=== PATIENT | female | born 1955 | race Caucasian/White ===

== ENCOUNTER 2019-08-27 12:11 | Outpatient (CLI) | payer BC, SELFPAY ==
[2019-08-27 12:57] LABS: Alanine Aminotransferase 29 U/L (4-35); Albumin Level 4.5 g/dL (3.5-5.1); Alkaline Phosphatase 43 U/L (38-126); Aspartate Amino Transferase 33 U/L (14-36); Bilirubin,Total 0.4 mg/dL (0.2-1.3); Blood Urea Nitrogen 9 mg/dL (7-17); Calcium 9.3 mg/dL (8.4-10.2); Carbon Dioxide 26 mmol/L (22-30); Chloride 93 mmol/L (98-107); Estimated Glomerular Filt Rate > 60; Glucose 84 mg/dL (65-105); Sodium 134 mmol/L (137-145)
[2019-08-27 13:04] LABS: Hemoglobin A1C 6.4 % (<5.7)
== END 2019-08-27 12:12 | disposition home or self-care (01) ==
LOC: ANHLAB 12:15
PROVIDERS: PCP Family Medicine; Visit Provider Physician Assistant
DX: E11.9 Type 2 diabetes mellitus without complications (principal)
CPT/HCPCS: 36415; 80053; 83036

== ENCOUNTER 2019-12-24 07:46 | Outpatient (RCR) | payer BC, SELFPAY ==
[2019-11-27 09:58] VITALS: BMI 38.8
== END 2020-02-10 07:31 | disposition home or self-care (01) ==
LOC: ANHWOC 07:46
PROVIDERS: PCP Family Medicine; Visit Provider Family Medicine
DX: I87.2 Venous insufficiency (chronic) (peripheral) (principal)
CPT/HCPCS: 99201; 99212; G0463

== ENCOUNTER 2020-02-17 15:21 | Outpatient (CLI) | payer BC, SELFPAY ==
[2020-02-17 15:44] LABS: Hemoglobin A1C 6.9 % (<5.7)
[2020-02-17 15:47] LABS: Alanine Aminotransferase 43 U/L (4-35); Albumin Level 4.4 g/dL (3.5-5.1); Alkaline Phosphatase 49 U/L (38-126); Anion Gap 11 mmol/L (8-16); Aspartate Amino Transferase 40 U/L (14-36); Bilirubin,Total 0.2 mg/dL (0.2-1.3); Blood Urea Nitrogen 8 mg/dL (7-17); Calcium 9.2 mg/dL (8.4-10.2); Carbon Dioxide 26 mmol/L (22-30); Chloride 95 mmol/L (98-107); Estimated Glomerular Filt Rate > 60; Glucose 86 mg/dL (65-105); Potassium 4.2 mmol/L (3.4-5.0); Sodium 132 mmol/L (137-145)
== END 2020-02-17 15:22 | disposition home or self-care (01) ==
PROVIDERS: PCP Family Medicine; Visit Provider Physician Assistant
DX: E11.9 Type 2 diabetes mellitus without complications (principal); I10 Essential (primary) hypertension
CPT/HCPCS: 36415; 80053; 83036

== ENCOUNTER 2020-03-06 15:36 | Emergency (ER) | payer BC, SELFPAY ==
--- NOTE | ~2020-03-06 | XR_ITS ---
XR knee LT min 4V DATE: 03/06/2020 16:41 INDICATION: Fall. Left knee injury, pain TECHNIQUE: 4 views including crosstable lateral COMPARISON: None FINDINGS: There is periarticular spurring of the patella and mild periarticular spurring of the media l femoral condyle. Joint spaces are relatively preserved. No fracture or dislocation or joint effusion is evident. No periosteal reaction or bone destruction. No radiopaque intra-articular loose body or chondrocalcinosis. Joint spaces are relatively well prese rved. IMPRESSION: Mild osteoarthritis Reviewed, dictated and finalized at location A. IMPRESSION: Mild osteoarthritis
--- NOTE | ~2020-03-06 | XR_ITS ---
XR knee RT min 4V DATE: 03/06/2020 16:40 INDICATION: Fall. Right knee pain, abrasion TECHNIQUE: 4 views including crosstable lateral COMPARISON: None FINDINGS: No fracture or dislocation or joint effusion. No periosteal reaction or bone destruction. N o radiopaque intra-articular loose body or chondrocalcinosis. Knee joint spaces are relatively preser elisa. There is inferior patellar enthesopathy at the patellar tendon insertion site and minimal enthes opathy of the anterior tibial tuberosity. IMPRESSION: Inferior patellar and anterior tibial tuberosity enthesopathy Reviewed, dictated and finalized at location A.
[2020-03-06 15:49] VITALS: BP 146/56; PULSE 99; RESP 18; TEMP 37.3; O2SAT 99
--- NOTE | 2020-03-06 16:05 | ED.LOWEXIN ---
HPI - Extremity Injury (Lower) General Chief Complaint: Extremity Injury, Lower Stated Complaint: (r)(L) knee pain fell Time Seen by Provider: 03/06/20 16:05 Source: patient and RN notes reviewed Mode of arrival: ambulatory Limitations: no limitations History of Present Illness HPI Narrative: 65-year-old female who presents to [facility] care with complaints of falling in her bathroom yesterday morning at 0545. Patient states no other injury but knees, denies any syncope,or dizziness prior to fall, states that she thinks that she just lost her balance. Patient has some redness to bilateral knees with abrasion noted to the top of her right knee. Patient states no pain at rest but 9-10 with movement of her knees and with ambulation. Patient states she thinks she may of hit her forehead but denies any headache, no redness or swelling or bruising noted. MD complaint: knee injury Onset (ago): day(s) (yesterday at 0545) Injury: Bilateral: knee (erythema bilateral knees with abrasion to right knee) Type of Injury: blunt Place: home Severity: severe (stated with ambulation and bending knees) Severity scale (1-10): 9 Relieving factors: rest Exacerbating factors: weight bearing Context: fall Associated symptoms: other (pain and redness to anterior knees) Other symptoms: none Related Data Home Medications Medication Instructions Recorded Confirmed ascorbate calcium (vitamin C) 500 500 mg PO DAILY 05/30/19 02/18/20 mg tablet aspirin 325 mg tablet 325 mg PO DAILY 05/30/19 02/18/20 bupropion HCl 300 mg 24 hr tablet, 300 mg PO QAM 05/30/19 02/18/20 extended release cyanocobalamin (vitamin B-12) 1,000 mcg PO DAILY 05/30/19 02/18/20 1,000 mcg capsule lorazepam 1 mg tablet 1 mg PO TID 05/30/19 02/18/20 omeprazole 40 mg capsule,delayed 40 mg PO DAILY 05/30/19 02/18/20 release oxcarbazepine 300 mg tablet 300 mg PO BID 05/30/19 02/18/20 Allergies Allergy/AdvReac Type Severity Reaction Status Date / Time amoxicillin Allergy Unknown Hives/Skin Verified 02/18/20 14:40 Rash Iodinated Contrast Media Allergy Unknown Hives / Verified 02/18/20 14:40 Red Face Review of Systems Review of Systems: Narrative: CONSTITUTIONAL: Denies fever, chills, or sweats. EYES: Denies visual changes, redness, or discharge. ENT: Denies rhinorrhea, congestion, sore throat, or otalgia. CARDIOVASCULAR: Denies chest pain, palpitations, or edema. RESPIRATORY: Denies cough or dyspnea. GASTROINTESTINAL: Denies abdominal pain, nausea, vomiting, or diarrhea. GENITOURINARY: Denies dysuria or hematuria. SKIN: Denies rash or itching.abrasion to right knee MUSCULOSKELETAL: Denies back pain, positive for bilateral knee joint pain, or myalgia. NEUROLOGIC: Denies headache, numbness, or weakness. PSYCHIATRIC:positive history of anxiety or depression. All systems reviewed & are unremarkable except as noted in HPI and below PMFSH Past Medical History Medical History (Updated 03/09/20 @ 15:[address] NP) Bipolar disorder, unspecified Essential (primary) hypertension Fatty liver GERD (gastroesophageal reflux disease) History of DVT (deep vein thrombosis) SOCO (obstructive sleep apnea) Type 2 diabetes mellitus without complications Surgical History Surgical History (Updated 03/09/20 @ 15:[address] NP) H/O inguinal hernia repair History of appendectomy History of dilatation and curettage Status post right foot surgery Family History Family History Father Hypertension Family history of diabetes mellitus in first degree relative Patient's father is Family history of coronary artery disease Family history of renal cell carcinoma Mother Patient's mother is Family history of coronary artery disease Sibling Family history of coronary artery disease Other Diabetes mellitus Social History Social History (Updated 03/09/20 @ 15:[address]
== END 2020-03-06 17:45 | disposition home or self-care (01) ==
PROVIDERS: Emergency Provider Registered Nurse; PCP Family Medicine
DX: S80.02XA Contusion of left knee, initial encounter (principal); S80.01XA Contusion of right knee, initial encounter; W19.XXXA Unspecified fall, initial encounter; Z87.891 Personal history of nicotine dependence; I10 Essential (primary) hypertension; K21.9 Gastro-esophageal reflux disease without esophagitis; Z86.718 Personal history of other venous thrombosis and embolism; E11.9 Type 2 diabetes mellitus without complications; G47.33 Obstructive sleep apnea (adult) (pediatric); K76.0 Fatty (change of) liver, not elsewhere classified; Z79.82 Long term (current) use of aspirin; F31.9 Bipolar disorder, unspecified
CPT/HCPCS: 73564; 99214; G0463

== ENCOUNTER 2020-07-06 16:06 | Outpatient (CLI) | payer BC, SELFPAY ==
[2020-07-06 16:44] LABS: Alanine Aminotransferase 47 U/L (4-35); Albumin Level 4.1 g/dL (3.5-5.1); Alkaline Phosphatase 55 U/L (38-126); Anion Gap 9 mmol/L (8-16); Aspartate Amino Transferase 43 U/L (14-36); Bilirubin,Total 0.3 mg/dL (0.2-1.3); Blood Urea Nitrogen 9 mg/dL (7-17); Calcium 9.1 mg/dL (8.4-10.2); Carbon Dioxide 25 mmol/L (22-30); Chloride 100 mmol/L (98-107); Estimated Glomerular Filt Rate > 60; Glucose 155 mg/dL (65-105); Potassium 4.3 mmol/L (3.4-5.0); Sodium 134 mmol/L (137-145)
== END 2020-07-06 16:07 | disposition home or self-care (01) ==
PROVIDERS: PCP Family Medicine; Visit Provider Physician Assistant
DX: E11.9 Type 2 diabetes mellitus without complications (principal); I10 Essential (primary) hypertension
CPT/HCPCS: 36415; 80053; 83036

== ENCOUNTER 2020-11-04 15:28 | Outpatient (CLI) | payer BC, SELFPAY ==
[2020-11-04 16:51] LABS: Alanine Aminotransferase 35 U/L (4-35); Albumin Level 4.7 g/dL (3.5-5.1); Alkaline Phosphatase 53 U/L (38-126); Anion Gap 8 mmol/L (8-16); Aspartate Amino Transferase 32 U/L (14-36); Bilirubin,Total 0.2 mg/dL (0.2-1.3); Blood Urea Nitrogen 15 mg/dL (7-17); Calcium 10.3 mg/dL (8.4-10.2); Carbon Dioxide 31 mmol/L (22-30); Chloride 99 mmol/L (98-107); Cholesterol 147 mg/dL (0-200); Estimated Glomerular Filt Rate > 60; Glucose 122 mg/dL (65-105); HDL Direct 54 mg/dL; Potassium 4.4 mmol/L (3.4-5.0); Sodium 138 mmol/L (137-145); Triglycerides 124 mg/dL (<150)
[2020-11-04 16:55] LABS: Hematocrit 43.7 % (37.0-47.0); Hemoglobin 13.8 g/dL (12.0-15.0); Mean Corpuscular HGB Conc 31.6 g/dl (32-36); Mean Corpuscular Hemoglobin 24.9 pg (26-34); Mean Corpuscular Volume 78.9 fl (80-100); Platelet Count Result 340 k/mm3 (150-375); Red Blood Count 5.54 M/mm3 (4.2-5.4); Red Cell Distribution Width 16.5 % (11.5-14.5); White Blood Count 9.8 K/mm3 (4.5-10.0)
[2020-11-04 17:02] LABS: Hemoglobin A1C 7.3 % (<5.7); LDL Cholesterol Direct 71 mg/dL
== END 2020-11-04 15:29 | disposition home or self-care (01) ==
LOC: ANHLAB 15:30
PROVIDERS: PCP Family Medicine; Visit Provider Family Medicine
DX: E11.9 Type 2 diabetes mellitus without complications (principal); I10 Essential (primary) hypertension; Z00.00 Encounter for general adult medical examination without abnormal findings
CPT/HCPCS: 36415; 80053; 80061; 83036; 84443; 85027

== ENCOUNTER 2020-11-05 16:23 | Outpatient (CLI) | payer BC, SELFPAY ==
[2020-11-05 17:46] LABS: Creatinine Urine 126.9 mg/dL
[2020-11-05 17:51] LABS: MALB Creatinine Ratio 14.2 mg/g (0-30)
[2020-11-06 11:09] LABS: Add Urine Microscopic? YES; Appearance Urine Turbid (Clear); Bacteria Urine Trace /hpf; Bilirubin Urine Negative (Negative); Blood Urine Negative (Negative); Calcium Oxalate Crystals Urine Present /hpf; Color Urine Yellow (Yellow); Glucose Urine UA Negative (Negative); Ketones Urine Negative (Negative); Leukocyte Esterase Ur Negative LEU/UL (NEGATIVE); Mucus Urine Rare /lpf; Nitrate Urine Negative (Negative); Protein Urine Negative (Negative); Urobilinogen Urine Negative mg/dL (<2.0); WBC Urine 0-3 /hpf (0-3)
[2020-11-06 11:10] LABS: Specific Grav Ur 1.031 (1.001-1.035)
== END 2020-11-05 16:24 | disposition home or self-care (01) ==
PROVIDERS: PCP Family Medicine; Visit Provider Family Medicine
DX: Z00.00 Encounter for general adult medical examination without abnormal findings (principal); E11.9 Type 2 diabetes mellitus without complications; I10 Essential (primary) hypertension
CPT/HCPCS: 81001; 82043

== ENCOUNTER 2020-11-27 10:34 | Outpatient (CLI) | payer BC, SELFPAY ==
--- NOTE | ~2020-11-27 | US_ITS ---
EXAMINATION: US venous doppler LE EXAM DATE: 11/27/2020 11:08 INDICATION: R60.0 - Localized edema. Leg swelling. TECHNIQUE: Multiple grayscale, color flow and Doppler images of the lower extremity deep venous syste ms bilaterally were obtained and reviewed. There is no prior study for comparison. FINDINGS: Right side: The right common femoral, femoral and profunda veins demonstrate normal color flow, respi ratory variation, augmentation and compressibility. Compressibility, color flow confirmed within the right popliteal, posterior tibial, peroneal, and greater saphenous veins. Left side: The left common femoral, femoral and profunda veins demonstrate normal color flow, respira tory variation, augmentation and compressibility. Compressibility, color flow confirmed within the l eft popliteal, posterior tibial, peroneal, and greater saphenous veins. IMPRESSION: 1. No lower extremity deep venous thrombosis bilaterally. Reviewed, dictated and finalized at location B.
== END 2020-11-27 10:35 | disposition home or self-care (01) ==
PROVIDERS: PCP Family Medicine; Visit Provider Physician Assistant
DX: R60.0 Localized edema (principal); M79.604 Pain in right leg; M79.605 Pain in left leg
CPT/HCPCS: 93970

== ENCOUNTER 2020-12-03 12:00 | Outpatient (RCR) | payer BC, SELFPAY ==
[2020-12-03 13:09] VITALS: BMI 39.2
== END 2021-02-16 12:18 | disposition home or self-care (01) ==
LOC: ANHWOC 12:00
PROVIDERS: PCP Family Medicine; Visit Provider Physician Assistant
DX: I83.009 Varicose veins of unspecified lower extremity with ulcer of unspecified site (principal); L97.909 Non-pressure chronic ulcer of unspecified part of unspecified lower leg with unspecified severity; L03.90 Cellulitis, unspecified
CPT/HCPCS: 99211; G0463

== ENCOUNTER 2021-04-12 14:44 | Outpatient (CLI) | payer MEDICARE, BC, SELFPAY ==
[2021-04-12 15:29] LABS: Alanine Aminotransferase 55 U/L (4-35); Albumin Level 4.7 g/dL (3.5-5.1); Alkaline Phosphatase 50 U/L (38-126); Anion Gap 11 mmol/L (8-16); Aspartate Amino Transferase 45 U/L (14-36); Bilirubin,Total 0.4 mg/dL (0.2-1.3); Blood Urea Nitrogen 9 mg/dL (7-17); Calcium 9.6 mg/dL (8.4-10.2); Carbon Dioxide 28 mmol/L (22-30); Chloride 100 mmol/L (98-107); Estimated Glomerular Filt Rate > 60; Glucose 183 mg/dL (65-110); Potassium 4.3 mmol/L (3.4-5.0); Sodium 139 mmol/L (137-145)
[2021-04-12 16:19] LABS: Hemoglobin A1C 7.6 % (<5.7)
== END 2021-04-12 14:45 | disposition home or self-care (01) ==
PROVIDERS: PCP Family Medicine; Visit Provider Physician Assistant
DX: E11.9 Type 2 diabetes mellitus without complications (principal); K76.0 Fatty (change of) liver, not elsewhere classified; I10 Essential (primary) hypertension
CPT/HCPCS: 36415; 80053; 83036

== ENCOUNTER 2021-06-01 10:33 | Emergency (ER) | payer MEDICARE, BC, SELFPAY ==
--- NOTE | ~2021-06-01 | XR_ITS ---
EXAMINATION: XR knee LT 3V DATE: 06/01/2021 11:19 INDICATION: Left knee pain. Fall. TECHNIQUE: 3 views of left knee were obtained. COMPARISON: Left knee radiographs 03/06/2020 FINDINGS: Bone alignment is normal. No fracture. There is mild tricompartmental osteoarthritis. No kn ee joint effusion. IMPRESSION: 1. Mild left knee osteoarthritis. Reviewed, dictated and finalized at location A. 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
--- NOTE | ~2021-06-01 | XR_ITS ---
EXAMINATION: XR knee RT 3V DATE: 06/01/2021 11:19 INDICATION: Right knee pain and abrasions post fall TECHNIQUE: Anteroposterior, oblique and crosstable lateral views of the right knee were obtained COMPARISON: None. FINDINGS: Right knee alignment is normal. Joint spaces appear normal on nonweightbearing imaging. Small entheso phytes at the proximal distal insertions of the patellar tendon. No fracture. No joint effusion/layer ing lipohemarthrosis. Soft tissues are unremarkable. No radiopaque foreign bodies. IMPRESSION: 1. No right knee joint effusion, acute osseous abnormality or radiopaque foreign body. Reviewed, dictated and finalized at location B. HANDISE COORDINATOR IMPRESSION: 1. No right knee joint effusion, acute osseous abnormality or radiopaque foreig n body.
--- NOTE | ~2021-06-01 | CT_ITS ---
EXAMINATION: CT brain wo con INDICATION: Head injury COMPARISON: None TECHNIQUE: Standard unenhanced head CT. The dose-length product (DLP) was 681.00 mGy-cm. The mA was a djusted according to patient size. Iterative reconstruction technique was employed. FINDINGS: There is no acute intraparenchymal hemorrhage. No evidence of mass lesion. No evidence of a cute infarction. There is mild periventricular and subcortical hypodensity probably related to small vessel ischemic disease. There is mild prominence of the sulci and ventricles related to cerebral atr ophy. Intracranial calcified cerebral atherosclerosis is noted. There are no extra-axial collections. There is no mass effect or midline shift. The orbits and soft tissues are unremarkable. There is a p olyp or mucous retention cyst of the left maxillary sinus. IMPRESSION: 1. No acute intracranial abnormality. 2. Age related findings. Reviewed, dictated and finalized at location A. 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
[2021-06-01 10:34] VITALS: BP 150/74; PULSE 104; RESP 16; TEMP 37.2; O2SAT 98
--- NOTE | 2021-06-01 10:44 | PC.NURSE ---
attempted to notify dr. hand [facility] , n/a.
[2021-06-01 12:58] VITALS: BP 116/53; RESP 18; O2SAT 98
[2021-06-01 13:03] VITALS: BP 127/62
[2021-06-01 13:07] LABS: Basophils Percent Auto 0.5 % (0.2-1.2); Eosinophils Absolute Auto 0.1 K/mm3 (0-0.3); Eosinophils Percent Auto 1.2 % (0-4.4); Hemoglobin 13.6 g/dL (12.0-15.0); Immature Granulocyte Absolute 0.05 K/mm3 (0.00-0.031); Immature Granulocyte Percent A 0.6 % (0-0.5); Lymphocytes Absolute Auto 0.97 K/mm3 (0.9-3.2); Lymphocytes Percent Auto 10.9 % (18.3-44.2); Mean Corpuscular HGB Conc 31.6 g/dl (32-36); Mean Corpuscular Hemoglobin 25.3 pg (26-34); Mean Corpuscular Volume 79.9 fl (80-100); Monocytes Absolute Auto 0.6 K/mm3 (0.1-0.6); Monocytes Percent Auto 6.3 % (2.6-8.5); Neutrophils Absolute Auto 7.2 K/mm3 (1.3-6.7); Neutrophils Percent Auto 80.5 % (45.5-73.1); Platelet Count Result 310 k/mm3 (150-375); Red Blood Count 5.38 M/mm3 (4.2-5.4); Red Cell Distribution Width 16.1 % (11.5-14.5); White Blood Count 8.9 K/mm3 (4.5-10.0)
[2021-06-01 13:23] LABS: Alanine Aminotransferase 48 U/L (4-35); Albumin Level 4.4 g/dL (3.5-5.1); Alkaline Phosphatase 57 U/L (38-126); Anion Gap 13 mmol/L (8-16); Aspartate Amino Transferase 42 U/L (14-36); Bilirubin,Total 0.4 mg/dL (0.2-1.3); Blood Urea Nitrogen 10 mg/dL (7-17); Calcium 9.4 mg/dL (8.4-10.2); Carbon Dioxide 23 mmol/L (22-30); Chloride 99 mmol/L (98-107); Estimated Glomerular Filt Rate > 60; Glucose 174 mg/dL (65-110); Potassium 4.4 mmol/L (3.4-5.0); Sodium 135 mmol/L (137-145)
--- NOTE | 2021-06-01 13:43 | ED.FALL ---
HPI - Fall General Chief Complaint: Fall Stated Complaint: Fall Time Seen by Provider: 06/01/21 11:45 Source: patient Mode of arrival: EMS Limitations: no limitations History of Present Illness HPI Narrative: 66-year-old female Presents after a fall Patient was on her way to Dr. Weinstein's office today for for an appointment to get her omeprazole refilled She said her legs seem to feel weak while she was walking into the hospital and she fell on the ground and landed on both knees She is able to move them both and to bend them She has a small spot on her forehead which she says is painful or feels like it is lifting up however she did not strike her head and has no bruising or contusion or abrasion there She denied any other symptoms prior to falling, she did not have chest pain, she did not have syncope, she did not have focal weakness, and she has not had any recent illnesses She notes that both of her legs are swollen but this is not recent Also that she was meeting to discuss the status of her liver with Dr. Weinstein because she has fatty liver disease, and sometimes gets upper abdominal pains Related Data Home Medications Medication Instructions Recorded Confirmed bupropion HCl 300 mg 24 hr tablet, 300 mg PO QAM 05/30/19 04/15/21 extended release lorazepam 1 mg tablet 1 mg PO TID 05/30/19 04/15/21 omeprazole 40 mg capsule,delayed 40 mg PO DAILY 05/30/19 04/15/21 release oxcarbazepine 300 mg tablet 300 mg PO BID 05/30/19 04/15/21 Allergies Allergy/AdvReac Type Severity Reaction Status Date / Time amoxicillin Allergy Unknown Hives/Skin Verified 04/15/21 13:39 Rash Iodinated Contrast Media Allergy Unknown Hives / Verified 04/15/21 13:39 Red Face Review of Systems Review of Systems: All systems reviewed & are unremarkable except as noted in HPI and below Constitutional: Constitutional: Reports no additional constitutional complaints, Denies chills, Reports fatigue, Denies fever(s), Denies headache(s) and Reports weakness Eyes: Eyes: Reports no additional eye complaints and Denies change in vision ENT: Denies headache(s) and Denies sore throat Cardiovascular: Cardiovascular: Denies chest pain, Denies rapid heart rate, Denies radiating jaw, neck or arm pain, Denies dyspnea and Denies slow heart rate Respiratory: Respiratory: Denies cough and Denies dyspnea Gastrointestinal: Gastrointestinal: Reports abdominal pain, Denies diarrhea, Reports nausea and Denies vomiting Genitourinary: Genitourinary: Denies hematuria, Denies urinary frequency, Denies nocturia and Denies dysuria Musculoskeletal: Musculoskeletal: Denies deformity, Reports arthralgias, Reports joint swelling and Denies numbness Integumentary/Breasts: Skin/Breast: Denies rash and Denies wounds Neurologic: Denies headache(s), Denies focal weakness and Denies numbness Psychiatric: Psychiatric: Reports no additional psychiatric complaints Endocrine: Endocrine: Reports no additional endocrine complaints Hematologic/Lymphatic: Hematologic/Lymphatic: Reports no additional hematologic/lymphatic complaints Allergic/Immunologic: Allergic/Immunologic: Reports no additional allergic/immunologic complaints PMFSH Past Medical History Medical History Bipolar disorder, unspecified Essential (primary) hypertension Fatty liver GERD (gastroesophageal reflux disease) History of DVT (deep vein thrombosis) SOCO (obstructive sleep apnea) Type 2 diabetes mellitus without complications Venous stasis dermatitis of both lower extremities Surgical History Surgical History H/O inguinal hernia repair History of appendectomy History of dilatation and curettage Status post right foot surgery Family History Family History Father Hypertension Family history of diabetes mellitus in first degree relat
--- NOTE | 2021-06-01 14:20 | PC.NURSE ---
Awaiting PT evaluation at this time.
--- NOTE | 2021-06-01 14:27 | PCCCNOTE ---
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 Order is already in the system, Benjamín agreeable, Provided room #.
[2021-06-01 16:06] VITALS: BP 109/61; PULSE 90; RESP 16; TEMP 36.9; O2SAT 98
== END 2021-06-01 16:08 | disposition home or self-care (01) ==
PROVIDERS: Emergency Provider Emergency Medicine; PCP Family Medicine
DX: S80.00XA Contusion of unspecified knee, initial encounter (principal); S80.212A Abrasion, left knee, initial encounter; S80.211A Abrasion, right knee, initial encounter; E11.9 Type 2 diabetes mellitus without complications; I10 Essential (primary) hypertension; Z86.718 Personal history of other venous thrombosis and embolism; K21.9 Gastro-esophageal reflux disease without esophagitis; K76.0 Fatty (change of) liver, not elsewhere classified; G47.33 Obstructive sleep apnea (adult) (pediatric); I87.2 Venous insufficiency (chronic) (peripheral); F31.9 Bipolar disorder, unspecified; Z79.84 Long term (current) use of oral hypoglycemic drugs; Z87.891 Personal history of nicotine dependence; M17.12 Unilateral primary osteoarthritis, left knee; W18.39XA Other fall on same level, initial encounter
CPT/HCPCS: 36415; 70450; 73562; 80053; 85025; 97161; 99284

== ENCOUNTER → 2021-08-10 14:44 | Outpatient (CLI) | payer MEDICARE, SELFPAY ==
--- NOTE | ~2021-08-10 | MM_ITS ---
EXAMINATION: MM screening [facility] BI w adilson HISTORY: Screening TECHNIQUE: Craniocaudal and mediolateral oblique 3-D tomosynthesis images were obtained and synthetic 2-D images were generated. CAD analysis was submitted and interpreted. COMPARISON: Comparison to multiple prior studies sequentially, with oldest reviewed study dated 03/26. BREAST PARENCHYMAL COMPOSITION: There are scattered areas of fibroglandular density. FINDINGS: There is no evidence of suspicious mass, calcification, or architectural distortion to sugg est malignancy in either breast. There has been no suspicious interval change. IMPRESSION: 1. No mammographic evidence of malignancy. 2. Recommend routine screening mammography in one year. BI-RADS Category 1: Negative Reviewed, dictated and finalized at location A. UNT OFFICER
== END ==
PROVIDERS: PCP Family Medicine; Visit Provider Obstetrics & Gynecology
DX: Z12.31 Encounter for screening mammogram for malignant neoplasm of breast (principal)
CPT/HCPCS: 77063; 77067

== ENCOUNTER 2021-08-20 13:45 | Outpatient (CLI) | payer MEDICARE, SELFPAY ==
[2021-08-20 14:27] LABS: Alanine Aminotransferase 59 U/L (4-35); Albumin Level 4.4 g/dL (3.5-5.1); Alkaline Phosphatase 57 U/L (38-126); Anion Gap 10 mmol/L (8-16); Aspartate Amino Transferase 62 U/L (14-36); Bilirubin,Total 0.2 mg/dL (0.2-1.3); Blood Urea Nitrogen 11 mg/dL (7-17); Calcium 9.5 mg/dL (8.4-10.2); Carbon Dioxide 26 mmol/L (22-30); Chloride 103 mmol/L (98-107); Estimated Glomerular Filt Rate > 60; Glucose 194 mg/dL (65-110); Potassium 4.5 mmol/L (3.4-5.0); Sodium 139 mmol/L (137-145)
[2021-08-20 15:06] LABS: Hemoglobin A1C 8.6 % (<5.7)
== END 2021-08-20 13:46 | disposition home or self-care (01) ==
PROVIDERS: PCP Family Medicine; Visit Provider Physician Assistant
DX: E11.9 Type 2 diabetes mellitus without complications (principal); I10 Essential (primary) hypertension
CPT/HCPCS: 36415; 80053; 83036

== ENCOUNTER 2021-09-14 13:30 | Outpatient (RCR) | payer MEDICARE, BC, SELFPAY ==
--- NOTE | 2021-07-12 13:36 | PTOPEVAL ---
Thank you for referring Inge Hinton to [facility].? The patient is scheduled to be seen for therapy? 2 x/week for 8 weeks. Please review, sign, date and return this plan of care [email or web address]. I agree with and certify that the following plan of care is medically necessary. Referring Physician Date Attending Provider: Shraddha Elmore PA-C Referring Provider: Shraddha Elmore PA-C Outpatient Past Medical History Past Medical History Source of Past Medical History Recalled from Previous Visit, Confirmed with Patient/Family Neurological History Hx Neurological Disorders No Significant History Cardiovascular History Hx Hypercholesterolemia Yes Hx Hypertension Yes Respiratory History Hx Sleep Apnea Yes Gastrointestinal History Hx Appendectomy Yes Genitourinary History Hx Genitourinary Disorders No Significant History Musculoskeletal History Hx Other Musculoskeletal Disorders Yes: plantar facisitis surgery R foot Hematological History Hx Hematological Disorders No Significant History Endocrine History Hx Diabetes Yes HEENT History Hx Tonsillectomy Yes Hx Other HEENT Disorders Yes: wears glasses Integumentary History Hx Skin Disorders No Significant History Reproductive History Hx Other Reproductive Disorders Yes: D&C x6 Psychosocial History Hx Bipolar Disorder Yes Pain History History of Any Previous or Ongoing No Significant History Instance of Pain Anesthesia History Hx Anesthesia Reactions No Significant History Evaluation Information Diagnosis fall Onset 06/01 Additional Evaluation Detail 4 falls in the past 6 months and 7 in the past year. Prior to her fall in May, she was only using the cane for mobility. Ramp to enter from front and 1 step to laundry an out the back door Subjective Information She had a fall on 06/21 Query Text:As Reported By Patient/ outside the hospital. She does Family not use the walker in the house, only when in the community. She reports limitations with performs ADL's in standing with LOB, making turns, decreased initial standing balance. 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 She drives and assist with shopping.
--- NOTE | 2021-07-29 11:01 | PCPTNOTE ---
Patient called & cancelled scheduled appointment this date due to snowy weather.
--- NOTE | 2021-07-30 10:59 | PCPTNOTE ---
Patient called & cancelled scheduled appointment this date due to inclement weather.
--- NOTE | 2021-08-19 09:05 | PCPTNOTE ---
Patient called & cancelled scheduled appointment this date due to weather.
--- NOTE | 2021-09-10 13:19 | PCPTNOTE ---
Patient called & cancelled scheduled appointment at 12:45 for her 12:30 appt due to being ill. She has been rescheduled for next week.
--- NOTE | 2021-09-14 14:17 | PTOPEVAL ---
Physical Therapy Discharge Summary Thank you for referring Inge Hinton to [facility].?See summary below for Inge's progress with therapy. She has reached maximal potential with skilled therapy services at this time. Will DC physical therapy at this time. Please review, sign, date and return this discharge summary EDWIGE. I agree with and certify that the following plan of care is medically necessary. Referring Physician Date Attending Provider: Shraddha Elmore PA-C Referring Provider: Shraddha Elmore PA-C Diagnosis fall Onset 06/01 Additional Evaluation Detail 4 falls in the past 6 months and 7 in the past year. Prior to her fall in May, she was only using the cane for mobility. Ramp to enter from front and 1 step to laundry an out the back door. She had a fall on 06/21 outside the hospital. Subjective Information She will use the cane at times Query Text:As Reported By Patient/ in the house. Walker is used Family in the community. Denies any falls since starting therapy. She denies any limitations with performs ADL's, making turns, or sit<>stand motion. She reports she is trying to get out of the chair more. She is getting up every 2-3hrs. Pain Assessment Self Report Pain Level 0 Balance Assessment ELIZONDO Balance Evaluation Total Score (46/5 points) Time Up Go (TUG) Timed Up and Go Test (TUG) (Seconds) 27 Assistive Devices Walker, Wheeled Comments 17 sec without AD 5 Time Sit to Stand Time in Seconds 17 5 Time Sit to Stand Comments without use of UE Gait Assessment Gait Pattern Observed Decreased Stride Length - Left ,Decreased Stride Length - Right,No Heel Strike - Left,No Heel Strike - Right,Trunk Flexed,Trunk Lateral Lean - Right Other Gait Observations increased WB on walker 2 Minute Walk Total Distance Walked (feet) 273 2 Minute Walk Gait Speed Score (feet/ 2.27 second) 2 Minute Walk Test Comments with walker pre-test:O2 sats 97%, HR: 100 post-test: O2 sats: 95%, HR: 113 Stair Climbing Assessment Stair Climbing Assessment Stair Climbing Assistive Devices
== END 2021-09-15 10:55 | disposition home or self-care (01) ==
LOC: ANHPT 13:30
PROVIDERS: PCP Family Medicine; Referring Provider Physician Assistant; Visit Provider Physician Assistant
DX: R26.81 Unsteadiness on feet (principal); W10.1XXD Fall (on)(from) sidewalk curb, subsequent encounter
CPT/HCPCS: 97110; 97112; 97116; 97163; 97530

== ENCOUNTER 2021-12-31 16:02 | Outpatient (CLI) | payer MEDICARE, SELFPAY ==
[2021-12-31 17:21] LABS: Alanine Aminotransferase 58 U/L (6-35); Albumin Level 4.5 g/dL (3.5-5.1); Alkaline Phosphatase 56 U/L (38-126); Anion Gap 11 mmol/L (8-16); Aspartate Amino Transferase 49 U/L (14-36); Bilirubin,Total 0.3 mg/dL (0.2-1.3); Blood Urea Nitrogen 9 mg/dL (7-17); Calcium 9.3 mg/dL (8.4-10.2); Carbon Dioxide 24 mmol/L (22-30); Chloride 100 mmol/L (98-107); Estimated Glomerular Filt Rate > 60; Glucose 151 mg/dL (65-110); Potassium 4.3 mmol/L (3.4-5.0); Sodium 135 mmol/L (137-145)
[2021-12-31 17:30] LABS: Hemoglobin A1C 7.9 % (<5.7)
== END 2021-12-31 16:03 | disposition home or self-care (01) ==
PROVIDERS: PCP Family Medicine; Visit Provider Physician Assistant
DX: E11.9 Type 2 diabetes mellitus without complications (principal); I10 Essential (primary) hypertension; K76.0 Fatty (change of) liver, not elsewhere classified
CPT/HCPCS: 36415; 80053; 83036

== ENCOUNTER 2022-06-07 09:23 | Outpatient (CLI) | payer MEDICARE, SELFPAY ==
[2022-06-07 10:27] LABS: Basophils Absolute Auto 0.1 K/mm3 (0.0-0.1); Basophils Percent Auto 0.8 % (0.2-1.2); Eosinophils Absolute Auto 0.2 K/mm3 (0-0.3); Eosinophils Percent Auto 2.4 % (0-4.4); Hematocrit 42.3 % (37.0-47.0); Immature Granulocyte Absolute 0.04 K/mm3 (0.00-0.031); Immature Granulocyte Percent A 0.6 % (0-0.5); Lymphocytes Absolute Auto 1.09 K/mm3 (0.9-3.2); Lymphocytes Percent Auto 16.4 % (18.3-44.2); Mean Corpuscular HGB Conc 33.1 g/dl (32-36); Mean Corpuscular Hemoglobin 28.1 pg (26-34); Mean Corpuscular Volume 84.9 fl (80-100); Monocytes Absolute Auto 0.4 K/mm3 (0.1-0.6); Monocytes Percent Auto 6.3 % (2.6-8.5); Neutrophils Absolute Auto 4.9 K/mm3 (1.3-6.7); Neutrophils Percent Auto 73.5 % (45.5-73.1); Platelet Count Result 279 k/mm3 (150-375); Red Blood Count 4.98 M/mm3 (4.2-5.4); Red Cell Distribution Width 15.1 % (11.5-14.5); White Blood Count 6.6 K/mm3 (4.5-10.0)
[2022-06-07 10:40] LABS: Albumin Level 4.5 g/dL (3.5-5.1)
[2022-06-07 11:09] LABS: Vitamin D 25 Hydroxy 32.5 ng/mL
[2022-06-07 11:29] LABS: Alanine Aminotransferase 54 U/L (6-35); Alkaline Phosphatase 55 U/L (38-126); Anion Gap 11 mmol/L (8-16); Aspartate Amino Transferase 52 U/L (14-36); Bilirubin,Total 0.3 mg/dL (0.2-1.3); Blood Urea Nitrogen 8 mg/dL (7-17); Calcium 9.2 mg/dL (8.4-10.2); Carbon Dioxide 26 mmol/L (22-30); Chloride 99 mmol/L (98-107); Cholesterol 163 mg/dL (0-200); Estimated Glomerular Filt Rate > 60; Glucose 174 mg/dL (65-110); HDL Direct 42 mg/dL; Hemoglobin A1C 8.3 % (<5.7); Potassium 4.1 mmol/L (3.4-5.0); Sodium 136 mmol/L (137-145); Triglycerides 107 mg/dL (<150)
[2022-06-07 11:38] LABS: LDL Cholesterol Direct 93 mg/dL
[2022-06-07 16:15] LABS: Creatinine Urine 105.8 mg/dL
[2022-06-07 16:20] LABS: MALB Creatinine Ratio 14.9 mg/g (0-30); Microalbumin Urine Random 15.8 mg/L (0-16.7)
[2022-06-07 16:25] LABS: Add Urine Microscopic? YES; Bilirubin Urine Negative (Negative); Blood Urine Negative (Negative); Color Urine Yellow (Yellow); Glucose Urine UA 1+ mg/dL (Negative); Ketones Urine Trace mg/dL (Negative); Leukocyte Esterase Ur Negative LEU/UL (NEGATIVE); Nitrate Urine Negative (Negative); Protein Urine Negative (Negative); Specific Grav Ur >= 1.030 (1.001-1.035); Urobilinogen Urine 0.2 mg/dL (<2.0); pH Urine 5.5 (5.0-9.0)
[2022-06-07 16:27] LABS: Appearance Urine Slightly Cloudy (Clear)
[2022-06-07 16:40] LABS: Bacteria Urine Trace /hpf; Mucus Urine Rare /lpf; Squamous Epithelial Cell Urine Rare /hpf (Few)
== END 2022-06-07 09:24 | disposition home or self-care (01) ==
LOC: ANHLAB 09:26
PROVIDERS: PCP Family Medicine; Visit Provider Physician Assistant
DX: E11.9 Type 2 diabetes mellitus without complications (principal); I10 Essential (primary) hypertension; G47.33 Obstructive sleep apnea (adult) (pediatric); K76.0 Fatty (change of) liver, not elsewhere classified; I87.2 Venous insufficiency (chronic) (peripheral); E66.9 Obesity, unspecified; E55.9 Vitamin D deficiency, unspecified
CPT/HCPCS: 36415; 80053; 80061; 81001; 82043; 82306; 83036; 84443; 85025

== ENCOUNTER 2022-06-22 12:39 | Outpatient (CLI) | payer MEDICARE, BC, SELFPAY ==
--- NOTE | ~2022-06-22 | US_ITS ---
EXAMINATION: US right upper quadrant DATE: 06/22/2022 13:31 INDICATION: Abnormal levels of other serum enzymes TECHNIQUE: Multiple grayscale and Doppler ultrasound images of the abdomen were obtained. COMPARISON: 06/16/2017 FINDINGS: Bowel gas obscures visualization of the pancreas. The visualized portions of the pancreas a re unremarkable. Cysts of the liver measure 4.4 and 4.3 cm. The liver is otherwise normal with normal echogenicity and echotexture. No surface nodularity. Normal hepatopetal flow in the main portal vein . Sludge is noted in the gallbladder. There is no gallbladder wall thickening or pericholecystic flui d. The normal common bile duct measures 6 mm. There was no sonographic Elmore sign. IMPRESSION: 1. No sonographic correlate for the patient's symptoms. 2. Gallbladder sludge. Reviewed, dictated and finalized at location B. ROOM SUPERVISOR
== END 2022-06-22 12:40 | disposition home or self-care (01) ==
PROVIDERS: PCP Family Medicine; Visit Provider Physician Assistant
DX: R74.8 Abnormal levels of other serum enzymes (principal); K83.9 Disease of biliary tract, unspecified
CPT/HCPCS: 76705

== ENCOUNTER 2022-10-07 15:35 | Outpatient (CLI) | payer MEDICARE, SELFPAY ==
[2022-10-07 17:10] LABS: Alanine Aminotransferase 44 U/L (6-35); Albumin Level 4.5 g/dL (3.5-5.1); Alkaline Phosphatase 51 U/L (38-126); Anion Gap 10 mmol/L (8-16); Aspartate Amino Transferase 37 U/L (14-36); Bilirubin,Total 0.4 mg/dL (0.2-1.3); Blood Urea Nitrogen 10 mg/dL (7-17); Calcium 9.2 mg/dL (8.4-10.2); Carbon Dioxide 31 mmol/L (22-30); Chloride 99 mmol/L (98-107); Estimated Glomerular Filt Rate > 60; Glucose 197 mg/dL (65-110); Hemoglobin A1C 7.9 % (<5.7); Potassium 4.2 mmol/L (3.4-5.0); Sodium 140 mmol/L (137-145)
== END 2022-10-07 15:36 | disposition home or self-care (01) ==
LOC: ANHLAB 15:38
PROVIDERS: PCP Family Medicine; Visit Provider Physician Assistant
DX: E11.9 Type 2 diabetes mellitus without complications (principal); I10 Essential (primary) hypertension; R31.9 Hematuria, unspecified
CPT/HCPCS: 36415; 80053; 83036

== ENCOUNTER 2022-11-20 14:17 | Emergency (ER) | payer MEDICARE, SELFPAY ==
[2022-11-20 14:27] VITALS: BP 150/69; PULSE 100; RESP 12; TEMP 36.6; O2SAT 98
[2022-11-20 14:29] VITALS: BP 150/69; PULSE 100; RESP 12; TEMP 36.6; O2SAT 98
--- NOTE | 2022-11-20 14:45 | ED.GENADULT ---
HPI - General Adult General Chief complaint: Recheck/Abnormal Lab/Rx Stated complaint: Meds Refill Source: patient Mode of arrival: ambulatory Limitations: no limitations History of Present Illness HPI narrative: patient presents requesting medication refills. She has an underlying history bipolar 1, anxiety, depression. She ran out of lorazepam and is running low on her lamictal. Her psychiatrist is retiring and she is attempting to find a new mental health provider. She has an appt with a new psychiatrist but thinks the appt is not until next month. She states her PCP refilled her medications last. She denies any SI, HI, AH, VH. She is frustrated with the process for finding a new provider. Related Data Home Medications Medication Instructions Recorded Confirmed aspirin 325 mg tablet,delayed 325 mg PO DAILY 07/22/21 11/20/22 release Allergies Allergy/AdvReac Type Severity Reaction Status Date / Time Iodinated Contrast Media Allergy Unknown Hives / Verified 11/20/22 14:28 Red Face Review of Systems Review of Systems: CONSTITUTIONAL: Denies fever, chills, or sweats. EYES: Denies visual changes, redness, or discharge. ENT: Denies rhinorrhea, congestion, sore throat, or otalgia. CARDIOVASCULAR: Denies chest pain, palpitations, or edema. RESPIRATORY: Denies cough or dyspnea. GASTROINTESTINAL: Denies abdominal pain, nausea, vomiting, or diarrhea. GENITOURINARY: Denies dysuria or hematuria. SKIN: Denies rash or itching. MUSCULOSKELETAL: Denies back pain, joint pain, or myalgia. NEUROLOGIC: Denies headache, numbness, dizziness, or weakness. PSYCHIATRIC: Reports chronic anxiety and depression, not worse from baseline. Denies any SI, HI, AH, VH. [facility] Past Medical History Medical History Anxiety Bipolar disorder, unspecified Essential (primary) hypertension Fatty liver GERD (gastroesophageal reflux disease) GERD (gastroesophageal reflux disease) History of DVT (deep vein thrombosis) SOCO (obstructive sleep apnea) Type 2 diabetes mellitus without complications Venous stasis dermatitis of both lower extremities Surgical History Surgical History H/O inguinal hernia repair History of appendectomy History of dilatation and curettage History of tonsillectomy Status post right foot surgery Family History Family History Father Hypertension Family history of diabetes mellitus in first degree relative Patient's father is Family history of coronary artery disease Family history of renal cell carcinoma Mother Patient's mother is Family history of coronary artery disease Sibling Family history of coronary artery disease Other Diabetes mellitus Social History Social History Smoking status: Former smoker Second hand tobacco smoke exposure: No Smoking end date: 06/26/05 Alcohol intake: never Substance use: never Lack of Transportation: No Lack of Food: Never True Current Housing: I Have Housing Concerned About Future Housing: No Difficulty Paying Gas/Electric Bills: No Difficulty Paying for Meds: No Currently Unemployed: No Difficulty w/ Childcare or Family Care: No Living arrangements: with family Additional living arrangements comments: lives with brother Occupation/Education: retired Gender identity (if verbalized by the patient): Female Sexual Orientation (if Verbalized by the Patient): Straight or Heterosexual Exam Narrative: GENERAL: Well-appearing, well-nourished, and in no acute distress. HEAD: Normocephalic, atraumatic. EYES: PERRLA and EOMI. ENT: Nares clear, no rhinorrhea or epistaxis. Mucous membranes moist. Oropharynx without tonsillar hypertrophy exudate or other lesions. Bilate
== END 2022-11-20 14:48 | disposition home or self-care (01) ==
PROVIDERS: Emergency Provider Nurse Practitioner
DX: F41.9 Anxiety disorder, unspecified (principal); F31.9 Bipolar disorder, unspecified; Z79.82 Long term (current) use of aspirin; I10 Essential (primary) hypertension; K21.9 Gastro-esophageal reflux disease without esophagitis; Z86.718 Personal history of other venous thrombosis and embolism; E11.9 Type 2 diabetes mellitus without complications; I87.8 Other specified disorders of veins; K76.0 Fatty (change of) liver, not elsewhere classified
CPT/HCPCS: 99211; G0463

== ENCOUNTER 2022-11-29 18:57 | Emergency (ER) | payer MEDICARE, SELFPAY ==
--- NOTE | 2022-11-29 19:08 | ED.GENADULT ---
HPI - General Adult General Chief complaint: Recheck/Abnormal Lab/Rx Stated complaint: Ran out of meds Time Seen by Provider: 11/29/22 19:08 Source: patient, RN notes reviewed and old records reviewed Mode of arrival: ambulatory Limitations: no limitations History of Present Illness HPI narrative: 67-year-old female with a history of diabetes, anxiety, depression presents to the [facility] requesting more lorazepam. Patient was seen November 20, 9 days ago and was told that it was a 1 time thing that we would prescribe it. That she needed to follow-up. Patient has been very frustrated trying to find a psychiatrist because her is retired. Patient's primary care provider would only give a limited amount. Patient denies being SI HI Patient has not followed up. Explained to patient that I am unable to complete write for this controlled substance. She verbalized understanding Related Data Home Medications Medication Instructions Recorded Confirmed aspirin 325 mg tablet,delayed 325 mg PO DAILY 07/22/21 11/29/22 release Allergies Allergy/AdvReac Type Severity Reaction Status Date / Time Iodinated Contrast Media Allergy Unknown Hives / Verified 11/29/22 19:08 Red Face Review of Systems Review of Systems: All systems reviewed & are unremarkable except as noted in HPI and below Constitutional: Constitutional: Reports no additional constitutional complaints Eyes: Eyes: Reports no additional eye complaints ENT: Reports system reviewed and no additional complaints, except as documented Cardiovascular: Cardiovascular: Reports no additional cardiovascular complaints, Denies chest pain and Denies dyspnea Respiratory: Respiratory: Reports no additional respiratory complaints, Denies chest congestion, Denies cough and Denies dyspnea Gastrointestinal: Gastrointestinal: Reports no additional gastrointestinal complaints, Denies abdominal pain, Denies nausea and Denies vomiting Musculoskeletal: Musculoskeletal: Reports no additional musculoskeletal complaints Integumentary/Breasts: Skin/Breast: Reports system reviewed and no additional complaints, except as docu Neurologic: Reports system reviewed and no additional complaints, except as documented Psychiatric: Psychiatric: Reports no additional psychiatric complaints Allergic/Immunologic: Allergic/Immunologic: Reports no additional allergic/immunologic complaints PMFSH Past Medical History Medical History Anxiety Bipolar disorder, unspecified Essential (primary) hypertension Fatty liver GERD (gastroesophageal reflux disease) GERD (gastroesophageal reflux disease) History of DVT (deep vein thrombosis) SOCO (obstructive sleep apnea) Type 2 diabetes mellitus without complications Venous stasis dermatitis of both lower extremities Surgical History Surgical History H/O inguinal hernia repair History of appendectomy History of dilatation and curettage History of tonsillectomy Status post right foot surgery Family History Family History Father Hypertension Family history of diabetes mellitus in first degree relative Patient's father is Family history of coronary artery disease Family history of renal cell carcinoma Mother Patient's mother is Family history of coronary artery disease Sibling Family history of coronary artery disease Other Diabetes mellitus Social History Social History Smoking status: Former smoker Second hand tobacco smoke exposure: No Smoking end date: 06/26/05 Alcohol intake: never Substance use: never Lack of Transportation: No Lack of Food: Never True Current Housing: I Have Housing Concerned About Future Housing: No Difficulty Paying Gas/Electric Bills: No Difficulty Paying f
[2022-11-29 19:09] VITALS: BP 143/49; PULSE 92; RESP 16; TEMP 36.8; O2SAT 99
== END 2022-11-29 19:22 | disposition home or self-care (01) ==
PROVIDERS: Emergency Provider Nurse Practitioner; PCP Family Medicine
DX: F41.9 Anxiety disorder, unspecified (principal); Z79.82 Long term (current) use of aspirin; I10 Essential (primary) hypertension; K76.0 Fatty (change of) liver, not elsewhere classified; K21.9 Gastro-esophageal reflux disease without esophagitis; Z86.718 Personal history of other venous thrombosis and embolism; E11.9 Type 2 diabetes mellitus without complications; I87.8 Other specified disorders of veins
CPT/HCPCS: 99211; G0463

== ENCOUNTER 2022-12-25 17:34 | Emergency (ER) | payer OTHER, SELFPAY ==
[2022-12-25 17:37] VITALS: BP 149/56; PULSE 92; RESP 16; TEMP 36.4; O2SAT 97
--- NOTE | 2022-12-25 18:32 | ED.GENADULT ---
HPI - General Adult General Chief complaint: Unspecified Stated complaint: med refill Time Seen by Provider: 12/25/22 18:07 History of Present Illness HPI narrative: Patient is a 67-year-old female with a history of bipolar disorder presenting for medication refill. Patient states that she has been trying for the last 6 months to make an appointment with a new psychiatrist. States that she actually had an appointment last month but then they canceled it for insurance reasons. States that she has an appointment with her PCP in 3 days but she will run out of her Lamictal after tonight. She needs a refill to get her through until this appointment. States that she also has an appointment with [facility] coming up. Denies SI or HI. Denies further complaints. Related Data Home Medications Medication Instructions Recorded Confirmed aspirin 325 mg tablet,delayed 325 mg PO DAILY 07/22/21 11/29/22 release Allergies Allergy/AdvReac Type Severity Reaction Status Date / Time Iodinated Contrast Media Allergy Unknown Hives / Verified 11/29/22 19:08 Red Face Review of Systems Review of Systems: All systems reviewed & are unremarkable except as noted in HPI and below PMFSH Past Medical History Medical History Anxiety Bipolar disorder, unspecified Essential (primary) hypertension Fatty liver GERD (gastroesophageal reflux disease) GERD (gastroesophageal reflux disease) History of DVT (deep vein thrombosis) SOCO (obstructive sleep apnea) Type 2 diabetes mellitus without complications Venous stasis dermatitis of both lower extremities Surgical History Surgical History H/O inguinal hernia repair History of appendectomy History of dilatation and curettage History of tonsillectomy Status post right foot surgery Family History Family History Father Hypertension Family history of diabetes mellitus in first degree relative Patient's father is Family history of coronary artery disease Family history of renal cell carcinoma Mother Patient's mother is Family history of coronary artery disease Sibling Family history of coronary artery disease Other Diabetes mellitus Social History Social History Smoking status: Former smoker Second hand tobacco smoke exposure: No Smoking end date: 01/01/06 Alcohol intake: never Substance use: never Lack of Transportation: No Lack of Food: Never True Current Housing: I Have Housing Concerned About Future Housing: No Difficulty Paying Gas/Electric Bills: No Difficulty Paying for Meds: No Currently Unemployed: No Difficulty w/ Childcare or Family Care: No Living arrangements: with family Additional living arrangements comments: lives with brother Occupation/Education: retired Gender identity (if verbalized by the patient): Female Sexual Orientation (if Verbalized by the Patient): Straight or Heterosexual Exam Narrative: GENERAL: Well-appearing, well-nourished, and in no acute distress. HEAD: Normocephalic, atraumatic. EYES: PERRLA and EOMI. ENT: Nares clear, no rhinorrhea or epistaxis NECK: Supple. CHEST: No respiratory distress. HEART: Regular rate and rhythm. ABDOMEN: Nondistended EXTREMITIES: Normal range of motion. No edema. SKIN: Warm, dry, no rash. NEURO: No focal deficits. Alert and oriented x3. PSYCH: Normal mood and affect. No SI or HI Course Vital Signs Vital signs: Vital Signs Temperature 97.6 F 12/25/22 17:37 Pulse Rate 92 12/25/22 17:37 Respiratory Rate 16 12/25/22 17:37 Blood Pressure 149/56 H 12/25/22 17:37 Pulse Oximetry 97 12/25/22 17:37 Temperature 97.6 F 12/25/22 17:37 Pulse Rate 92 12/25/22 17:37 Respiratory Rate 16 12/25/22 17
== END 2022-12-25 18:51 | disposition home or self-care (01) ==
PROVIDERS: Emergency Provider Emergency Medicine; PCP Family Medicine
DX: F31.9 Bipolar disorder, unspecified (principal); Z76.0 Encounter for issue of repeat prescription; I10 Essential (primary) hypertension; E11.9 Type 2 diabetes mellitus without complications; I87.2 Venous insufficiency (chronic) (peripheral); G47.33 Obstructive sleep apnea (adult) (pediatric); K21.9 Gastro-esophageal reflux disease without esophagitis; F41.9 Anxiety disorder, unspecified; Z86.718 Personal history of other venous thrombosis and embolism; Z87.891 Personal history of nicotine dependence; Z79.84 Long term (current) use of oral hypoglycemic drugs; Z79.82 Long term (current) use of aspirin
CPT/HCPCS: 99281

== ENCOUNTER → 2023-01-31 13:08 | Outpatient (CLI) | payer MEDICARE, SELFPAY ==
--- NOTE | ~2023-01-31 | DEXA_ITS ---
Bone Density Report Name: BROCK WATTS Age: 67 Sex: Female Ethnicity: White Date of : 1955 Indication: postmenopausal; screening for osteoporosis; height loss; secondary osteoporosis; Referring Provider: JUAN WILSON Study: Bone densitometry was performed. Exam Date: January 31, 2023 Accession number: [id number] Bone Density: Region BMD T-score Z-score Classification AP Spine (L1-L4) 1.221 1.6 3.5 Normal Femoral Neck (Left) 0.941 0.8 2.4 Normal Total Hip (Left) 1.102 1.3 2.6 Normal Femoral Neck (Right) 0.883 0.3 1.9 Normal Total Hip (Right) 1.039 0.8 2.1 Normal Total Hip Mean 1.071 1.1 2.4 Normal World Health Organization criteria for BMD impression classify patients as: Normal (T-score at or above -1.0), Osteopenia (T-score between -1.0 and -2.5), or Osteoporosis (T-score at or below -2.5). 10-year Fracture Risk: FRAX not reported because: All T-scores for Spine Total, Hip Total, Femoral Neck at or above -1.0 Previous Exams: Region Exam Age BMD T-score BMD Change BMD Change Date g/cm2 vs Baseline vs Previous AP Spine(L1-L4) 01/31/2023 67 1.221 1.6 -0.111 0.032* 09/17/2018 63 1.188 1.3 -0.143 -0.019 08/10/2016 61 1.208 1.5 -0.124 0.014 04/06/2011 56 1.194 1.3 -0.137 -0.137 08/16/2006 51 1.332 2.6 Total Hip(Left) 01/31/2023 67 1.102 1.3 -0.140 -0.031* 09/17/2018 63 1.133 1.6 -0.109 -0.010 08/10/2016 61 1.143 1.6 -0.099 -0.006 04/06/2011 56 1.149 1.7 -0.093 -0.093 08/16/2006 51 1.242 2.5 Total Hip(Right) 01/31/2023 67 1.039 0.8 -0.135 -0.039* 09/17/2018 63 1.078 1.1 -0.096 -0.012 08/10/2016 61 1.090 1.2 -0.084 0.033* 04/06/2011 56 1.057 0.9 -0.117 -0.117 08/16/2006 51 1.174 1.9 *Denotes significance at 95% confidence level, LSC for AP Spine = 0.022 g/cm2, LSC for Total Hip = 0.027 g/cm2 Clinical Information Provided by Patient: Has secondary osteoporosis Has used the following medications: Vitamin D Patient maximum height was 66 Menopause Age: 56 No regular weight bearing exercise Drinks caffeinated beverages Onset of menses at age 12 Number of children 0 Impression: The patient has normal bone mass. The BMD for the Tot
--- NOTE | ~2023-01-31 | MM_ITS ---
EXAMINATION: MM screening [facility] BI w adilson HISTORY: Screening mammogram TECHNIQUE: Craniocaudal and mediolateral oblique 3-D tomosynthesis images were obtained and synthetic 2-D images were generated. CAD analysis was submitted and interpreted. COMPARISON: 08/10/2021, 09/17/2018, 08/30/2017 BREAST PARENCHYMAL COMPOSITION: There are scattered areas of fibroglandular density. FINDINGS: No suspicious mass, calcification, or architectural distortion are identified in either rajat ast to suggest malignancy. There has been no suspicious interval change. IMPRESSION: 1. No mammographic evidence of malignancy. 2. Recommend routine screening mammography in one year. BI-RADS Category 1: Negative Reviewed, dictated and finalized at location A.
== END ==
PROVIDERS: PCP Obstetrics & Gynecology; Visit Provider Obstetrics & Gynecology
DX: Z12.31 Encounter for screening mammogram for malignant neoplasm of breast (principal); Z78.0 Asymptomatic menopausal state
CPT/HCPCS: 77063; 77067; 77080

== ENCOUNTER 2023-05-29 01:05 | Day surgery (SDC) | payer MEDICARE, SELFPAY ==
[2023-05-11 14:09] VITALS: BMI 35.2
--- NOTE | 2023-05-26 10:46 | SUR.PREOP ---
Patient called regarding upcoming procedure. Message left on patient's voicemail regarding preop instructions, appointment times, and procedure prep.
[2023-05-29 09:31] VITALS: BP 134/55; PULSE 98; RESP 18; TEMP 37; O2SAT 98; BMI 35.0
[2023-05-29 09:57] LABS: Glucose Point of Care 172 mg/dl (65-105)
[2023-05-29] MEDS: LACTATED RINGERS 1,000 ML 150 ML IV CONT (10:00)
--- NOTE | 2023-05-29 10:03 | PM.HPGS ---
History of Present Illness History of Present Illness Consent: Risks, benefits, and alternatives have been discussed and questions answered. Patient agrees to proceed with procedure. Chief complaint: Chronic Constipation,Esophageal Varices Narrative: Inge Hinton is a 68 year old female With a history of bipolar illness. Patient presents for colonoscopy an EGD. She had an EGD [address] Chace Bull that showed a small grade 1 esophageal varix. Patient denies any abdominal pain or heartburn. Follow-up EGD is requested. Additionally patient suffers with chronic constipation. Colonoscopy at that time apparently showed poor preparation. She did have a benign hyperplastic polyp. Patient reports having had previous polyps at some time prior to this. Patient referred today for both colonoscopy an EGD. She reports her bowel habits are relatively normal at present. Review of Systems Review of Systems: Review of systems noncontributory. [facility] Past Medical History Medical History Anxiety Bipolar disorder, unspecified Essential (primary) hypertension Fatty liver GERD (gastroesophageal reflux disease) GERD (gastroesophageal reflux disease) History of DVT (deep vein thrombosis) SOCO (obstructive sleep apnea) Type 2 diabetes mellitus without complications Venous stasis dermatitis of both lower extremities Surgical History Surgical History H/O inguinal hernia repair History of appendectomy History of dilatation and curettage History of tonsillectomy Status post right foot surgery Family History Family History Father Hypertension Family history of diabetes mellitus in first degree relative Patient's father is Family history of coronary artery disease Family history of renal cell carcinoma Mother Patient's mother is Family history of coronary artery disease Sibling Family history of coronary artery disease Other Diabetes mellitus Social History Social History Smoking status: Former smoker Tobacco type: cigarettes Second hand tobacco smoke exposure: No Smoking end date: 06/26/05 Alcohol intake: never Substance use: never Substance use type: does not use Lack of Transportation: No Lack of Food: Never True Current Housing: I Have Housing Concerned About Future Housing: No Difficulty Paying Gas/Electric Bills: No Difficulty Paying for Meds: No Currently Unemployed: No Difficulty w/ Childcare or Family Care: No Living arrangements: with family Additional living arrangements comments: lives with brother Occupation/Education: retired Gender identity (if verbalized by the patient): Female Sexual Orientation (if Verbalized by the Patient): Straight or Heterosexual Spiritual care concerns: No Meds Home Medications and Allergies Home Medications Medication Instructions Recorded Confirmed Type aspirin 325 mg tablet,delayed 325 mg PO DAILY 07/22/21 05/29/23 History release triamcinolone acetonide 0.1 % 1 applic topical BID external 10/28/21 05/29/23 Rx topical ointment vaginal rash #30 grams amlodipine 10 mg tablet 10 mg PO DAILY #90 tabs 06/28/22 05/29/23 Rx glipizide 10 mg tablet, extended 10 mg PO BID #180 tabs 06/28/22 05/29/23 Rx release 24 hr ergocalciferol (vitamin D2) 1,250 See Rx Instructions .Route 09/26/22 05/29/23 Rx mcg (50,000 unit) capsule .COMPLEX #3 caps blood sugar diagnostic (Blood #100 ea 10/12/22 05/29/23 Rx Glucose Test strips) blood-glucose meter #1 ea 10/12/22 05/29/23 Rx lancets #200 ea 10/12/22 05/29/23 Rx nystatin 100,000 unit/gram topical 1 applic topical BID PRN yeast 11/01/22 05/29/23 Rx cream rash #30 grams bupropion HCl 300 mg 24 hr tablet, 300 mg PO QAM #90 tabs
--- NOTE | 2023-05-29 10:24 | WPDANESEPPF ---
Anes - Initial Pre Proc Eval Procedure: Operation Date: 05/29/23 10:30 Proposed Procedures p Esophagogastroduodenoscopy & Colonoscopy - Chace Weinstein MD Date/Time: 05/29/23 10:24 Surgeon: Chace Weinstein MD Pre Op Diagnosis: Chronic Constipation,Esophageal Varices Patient Data Age: 68 Gender: F Height: 1.65 m Weight: 95.6 kg Last Vital Signs Temp 98.6 F 05/29/23 09:31 Pulse 98 05/29/23 09:31 Resp 18 05/29/23 09:31 BP 134/55 L 05/29/23 09:31 Pulse Ox 98 05/29/23 09:31 O2 Del Method Room Air 05/29/23 09:31 Allergies Allergy/AdvReac Type Severity Reaction Status Date / Time Iodinated Contrast Media Allergy Unknown Hives / Verified 05/29/23 09:29 Red Face Home Medications Medication Instructions Recorded Confirmed Type aspirin 325 mg tablet,delayed 325 mg PO DAILY 07/22/21 05/29/23 History release triamcinolone acetonide 0.1 % 1 applic topical BID external 10/28/21 05/29/23 Rx topical ointment vaginal rash #30 grams amlodipine 10 mg tablet 10 mg PO DAILY #90 tabs 06/28/22 05/29/23 Rx glipizide 10 mg tablet, extended 10 mg PO BID #180 tabs 06/28/22 05/29/23 Rx release 24 hr ergocalciferol (vitamin D2) 1,250 See Rx Instructions .Route 09/26/22 05/29/23 Rx mcg (50,000 unit) capsule .COMPLEX #3 caps blood sugar diagnostic (Blood #100 ea 10/12/22 05/29/23 Rx Glucose Test strips) blood-glucose meter #1 ea 10/12/22 05/29/23 Rx lancets #200 ea 10/12/22 05/29/23 Rx nystatin 100,000 unit/gram topical 1 applic topical BID PRN yeast 11/01/22 05/29/23 Rx cream rash #30 grams bupropion HCl 300 mg 24 hr tablet, 300 mg PO QAM #90 tabs 12/28/22 05/29/23 Rx extended release lamotrigine 100 mg tablet 100 mg PO BID #180 tabs 12/28/22 05/29/23 Rx oxcarbazepine 300 mg tablet See Rx Instructions .Route 12/28/22 05/29/23 Rx .COMPLEX #270 tabs lisinopril 40 mg tablet 40 mg PO DAILY #90 tabs 01/09/23 05/29/23 Rx sodium,potassium,mag sulfates 17.5 See Rx Instructions PO .COMPLEX 04/20/23 05/29/23 Rx gram-3.13 gram-1.6 gram oral soln #354 mL (Suprep Bowel Prep Kit) Lactobacillus 1 cap PO DAILY 05/11/23 05/29/23 History acidophilus-Bifidobac.animalis 2.5 billion cell capsule (Daily Probiotic) fluticasone propionate 50 2 spray intranasal DAILY 05/11/23 05/29/23 History mcg/actuation nasal spray,suspension lorazepam 0.5 mg tablet 0.5 mg PO BID anxiety 05/11/23 05/29/23 History metformin 500 mg tablet,extended 1,000 mg PO BID 05/11/23 05/29/23 History release 24 hr omeprazole 40 mg capsule,delayed 40 mg PO DAILY 05/11/23 05/29/23 History release Laboratory Tests 05/29/23 09:54 POC Capillary Glucose 172 H mg/dl (65-105) Patient hx anesthesia problems: none Family hx anesthesia problems: none Results Review: All pre-operative results and documents have been reviewed as part of the pre-operative evaluation. [facility] Past Medical History Medical History Anxiety Bipolar disorder, unspecified Essential (primary) hypertension Fatty liver GERD (gastroesophageal reflux disease) GERD (gastroesophageal reflux disease) History of DVT (deep vein thrombosis) SOCO (obstructive sleep apnea) Type 2 diabetes mellitus without complications Venous stasis dermatitis of both lower extremities Surgical History Surgical History H/O inguinal hernia repair History of appendectomy History of dilatation and curettage History of tonsillectomy Status post right foot surgery Family History Family History Father Hypertension Family history of diabetes mellitus in first degree relative Patient's father is Family history of coronary artery disease Family history of renal cell carcinoma Mother Patient's mother is Family history of coronary artery disease Siblin
--- NOTE | 2023-05-29 10:49 | SUR.OPER ---
EGD ended 1043 colonoscopy started 1048
[2023-05-29 11:05] VITALS: BP 103/53; PULSE 88; RESP 19; O2SAT 97
[2023-05-29 11:15] VITALS: BP 109/56; PULSE 89; RESP 19; O2SAT 95
[2023-05-29 11:25] VITALS: BP 119/57; PULSE 90; RESP 24; O2SAT 95
== END 2023-05-29 11:37 | disposition home or self-care (01) ==
PROVIDERS: Visit Provider Internal Medicine Gastroenterology
PROC: 0DJ08ZZ Inspection of Upper Intestinal Tract, Via Natural or Artificial Opening Endoscopic (ICD-10-PCS; CPT 43235; principal; 2023-05-29 10:30)
DX: K59.09 Other constipation (principal); K57.30 Diverticulosis of large intestine without perforation or abscess without bleeding; K64.8 Other hemorrhoids; D12.4 Benign neoplasm of descending colon; F41.9 Anxiety disorder, unspecified; F31.9 Bipolar disorder, unspecified; I10 Essential (primary) hypertension; K21.9 Gastro-esophageal reflux disease without esophagitis; G47.33 Obstructive sleep apnea (adult) (pediatric); E11.9 Type 2 diabetes mellitus without complications; E66.9 Obesity, unspecified; Z68.35 Body mass index [BMI] 35.0-35.9, adult; Z79.82 Long term (current) use of aspirin; Z79.84 Long term (current) use of oral hypoglycemic drugs; Z87.891 Personal history of nicotine dependence; Z86.010 Personal history of colon polyps; Z86.718 Personal history of other venous thrombosis and embolism; Z80.51 Family history of malignant neoplasm of kidney; Z82.49 Family history of ischemic heart disease and other diseases of the circulatory system
CPT/HCPCS: 43235; 45385; 82948; 88305; J2001; J2704; J7120

== ENCOUNTER 2023-08-31 16:14 | Outpatient (CLI) | payer MEDICARE, SELFPAY ==
--- NOTE | ~2023-08-31 | XR_ITS ---
EXAMINATION: XR abdomen/kub 1V DATE: 08/31/2023 16:37 INDICATION: Bloating and gas. TECHNIQUE: A supine view of the abdomen on 2 radiographs was obtained. COMPARISON: Abdomen radiographs 09/15/2008 FINDINGS: There are no dilated loops of bowel. There is a large volume of stool in the colon. There a re phleboliths in the pelvis. IMPRESSION: 1. Nonobstructive bowel gas pattern. Reviewed, dictated and finalized at location E. NESS AFFAIRS MANAGER
== END 2023-08-31 16:15 | disposition home or self-care (01) ==
PROVIDERS: PCP Family Medicine; Visit Provider Nurse Practitioner Family
DX: K92.89 Other specified diseases of the digestive system (principal); R19.4 Change in bowel habit
CPT/HCPCS: 74018

== ENCOUNTER 2023-09-11 16:13 | Outpatient (CLI) | payer MEDICARE, SELFPAY | END 2023-09-11 16:14 | disposition home or self-care (01) | LOC: ANHLAB 16:15 | PROVIDERS: PCP Family Medicine; Visit Provider Nurse Practitioner Family | DX: R19.4 Change in bowel habit (principal) | CPT/HCPCS: 87045; 87177; 87209; 87427; 87449 ==

== ENCOUNTER 2024-06-21 13:25 | Outpatient (CLI) | payer MEDICARE, SELFPAY ==
--- NOTE | ~2024-06-21 | MM_ITS ---
EXAMINATION: MM screening [facility] BI w adilson HISTORY: Screening TECHNIQUE: Craniocaudal and mediolateral oblique 3-D tomosynthesis images were obtained and synthetic 2-D images were generated. CAD analysis was submitted and interpreted. COMPARISON: 01/31/2023 and 08/30/2017 BREAST PARENCHYMAL COMPOSITION: There are scattered areas of fibroglandular density. FINDINGS: Punctate calcifications detected bilaterally, stable and benign in appearance, primarily de rmal in origin. Stable parenchymal pattern without suspicious microcalcifications, architectural distortion, discrete masses or significant asymmetry. IMPRESSION: 1. No mammographic evidence of malignancy. 2. Recommend routine screening mammography in one year. BI-RADS Category 2: Benign finding(s). Reviewed, dictated and finalized at location A. EY OPERATOR SLATE
== END 2024-06-21 13:26 | disposition home or self-care (01) ==
PROVIDERS: PCP Nurse Practitioner Family; Visit Provider Nurse Practitioner Family
DX: Z12.31 Encounter for screening mammogram for malignant neoplasm of breast (principal)
CPT/HCPCS: 77063; 77067